=== PATIENT | male | born 1965 | race African-American/Black ===

== ENCOUNTER 2020-09-20 16:59 | Emergency (ER) | payer SELFPAY ==
[~2020-09-20] VITALS: Ht 188 cm; Wt 128.0 kg
[2020-09-20] MEDS ORDERED: TETANUS, DIPHTHERIA, PERTUSSIS VAC/PF 0.5ML (>7YR OLD) IM ONE (17:30)
[2020-09-20] MEDS ORDERED: LIDOCAINE HCL/EPINEPHRINE 1%-EPI 1:100,000 10 ML VIAL IJ ONE (17:30)
[2020-09-20] MEDS ORDERED: BACITRACIN ZINC OINT UDPKT TOP ONE (17:30)
[2020-09-20 17:39] VITALS: BP 110/76
[2020-09-20 18:01] LABS: BASOPHILS % 0.6 % (0.0-2.0); EOSINOPHILS % 1.7 % (0.0-5.0); HEMATOCRIT. 44.4 % (42.0-52.0); HEMOGLOBIN. 15.1 g/dL (14.0-18.0); LYMPHOCYTES % 19.1 % (20.0-50.0); MEAN CORPUSCULAR HEMOGLOBIN 31.7 pg (28.0-32.0); MEAN CORPUSCULAR VOLUME 93.2 fL (80.0-94.0); MEAN PLATELET VOLUME 8.5 fl (7.4-10.4); MONOCYTES % 12.9 % (2.0-8.0); NEUTROPHILS % 65.7 % (40.0-76.0); PLATELET 255 x1000/uL (130-400); RED BLOOD CELL COUNT 4.76 mill/uL (4.7-6.1); RED CELL DISTRIBUTION WIDTH 14.7 % (11.6-14.6)
[2020-09-20 18:07] LABS: CHLORIDE 108 mEq/L (98-107)
[2020-09-20] MEDS ORDERED: CEPH500T MT (19:21)
== END 2020-09-20 19:30 | disposition left against medical advice (07) ==
LOC: ER 16:59 → EDBD 16:59 → ER 19:30
DX: S01.81XA Laceration without foreign body of other part of head, initial encounter (principal); R55 Syncope and collapse; R42 Dizziness and giddiness; I10 Essential (primary) hypertension; Z79.899 Other long term (current) drug therapy; W26.8XXA Contact with other sharp object(s), not elsewhere classified, initial encounter; Y93.89 Activity, other specified; Y92.89 Other specified places as the place of occurrence of the external cause; Y99.8 Other external cause status
CPT/HCPCS: 12016; 36415; 70450; 71045; 80053; 83880; 84484; 85025; 90471; 90715; 93005; 99285; J3490; Z7610